=== PATIENT | female | born 1945 | race Caucasian/White ===

== ENCOUNTER 2022-06-02 09:00 | Inpatient (IN) | payer OTHER ==
[~2022-06-02] VITALS: Ht 165.1 cm; Wt 58.1 kg
[2022-06-08] MEDS ORDERED: EZETIMIBE10 MG (14:37)
[2022-06-08] MEDS ORDERED: TERBINAFINE HC250 MG (14:37)
[2022-06-08] MEDS ORDERED: OMEPRAZOLE20 M1 (14:37)
[2022-06-11] MEDS ORDERED: LEVSIN/SL0.125 MG SL (13:06)
[2022-06-11] MEDS ORDERED: TRAM1TAB98 PO (13:06)
== END 2022-06-11 14:16 | disposition home or self-care (01) | DRG 331 ==
LOC: O/R 06-08 05:45 → SURH 06-08 05:45 → SURG 06-08 09:00 → SURH 06-08 10:40 → SURG 06-08 16:30 → SURH 06-11 14:16
PROVIDERS: ADMIT Surgery; ATTEND Surgery
PROC: 0DTN4ZZ Resection of Sigmoid Colon, Percutaneous Endoscopic Approach (ICD-10-PCS; 2022-06-08)
PROC: 0DBP4ZZ Excision of Rectum, Percutaneous Endoscopic Approach (ICD-10-PCS; principal; 2022-06-08 16:30)
DX: K57.20 Diverticulitis of large intestine with perforation and abscess without bleeding (principal); R10.32 Left lower quadrant pain; N73.6 Female pelvic peritoneal adhesions (postinfective); I10 Essential (primary) hypertension; N18.2 Chronic kidney disease, stage 2 (mild)